=== PATIENT | female | born 1985 | race Native Hawaiian/Other Pacific Islander ===

== ENCOUNTER 2022-05-27 08:12 | Outpatient (CLI) | payer BC | END 2022-05-27 19:10 | disposition home or self-care (01) | LOC: US 08:12 | PROVIDERS: ATTEND Internal Medicine | DX: R10.9 Unspecified abdominal pain (principal); K29.70 Gastritis, unspecified, without bleeding; R11.0 Nausea ==

== ENCOUNTER → 2022-06-01 | Outpatient (CLI) | payer BC | LOC: CT 08:25 | PROVIDERS: ATTEND Internal Medicine | DX: K80.80 Other cholelithiasis without obstruction (principal); R16.0 Hepatomegaly, not elsewhere classified; K29.70 Gastritis, unspecified, without bleeding; R11.0 Nausea; R10.9 Unspecified abdominal pain; R93.2 Abnormal findings on diagnostic imaging of liver and biliary tract | CPT/HCPCS: Q9963 ==

== ENCOUNTER 2023-02-09 08:08 | Outpatient (CLI) | payer BC | END 2023-02-09 19:05 | disposition home or self-care (01) | LOC: CT 08:08 | PROVIDERS: ATTEND Physician Assistant | DX: R63.5 Abnormal weight gain (principal); D18.03 Hemangioma of intra-abdominal structures | CPT/HCPCS: Q9963 ==